=== PATIENT | female | born 1995 | race Caucasian/White ===

== ENCOUNTER 2024-06-28 15:25 | Emergency (ER) | payer MEDICAID ==
[~2024-06-28] VITALS: Ht 157.5 cm; Wt 64.0 kg
[2024-06-28 15:28] VITALS: O2SAT 100
[2024-06-28 15:30] VITALS: BP 110/69; PULSE 100; RESP 16; TEMP 98; O2SAT 79
[2024-06-28] MEDS: ACETAMINOPHEN 325MG TABLET PO ONE (18:29)
[2024-06-28] MEDS: LIDOCAINE HCL/PF 1% 10 MG/ML 5ML VIAL INFIL ONE (19:00)
[2024-06-28] MEDS: BACITRACIN ZINC OINT UDPKT TOP ONE (19:00)
== END 2024-06-28 20:11 | disposition home or self-care (01) ==
LOC: ER 15:25
DX: S01.81XA Laceration without foreign body of other part of head, initial encounter (principal); W26.8XXA Contact with other sharp object(s), not elsewhere classified, initial encounter; Y93.89 Activity, other specified; Y92.89 Other specified places as the place of occurrence of the external cause; Y99.8 Other external cause status
CPT/HCPCS: 99283; 12013; J2003